=== PATIENT | female | born 1985 | race Hispanic/Latino ===

== ENCOUNTER 2023-05-29 13:00 | Emergency (ER) | payer BC ==
[~2023-05-29] VITALS: Ht 154.9 cm; Wt 56.7 kg
[2023-05-29 14:16] VITALS: BP 112/56; PULSE 65; RESP 1; RESP 18; TEMP 98.4; O2SAT 100
[2023-05-29] MEDS ORDERED: TORADOL IM STA (14:26)
[2023-05-29 14:30] VITALS: BP 112/56; PULSE 65; RESP 18; TEMP 98.4; O2SAT 100
[2023-05-29] MEDS ORDERED: TORADOL ONE (14:39)
[2023-05-29 15:25] VITALS: BP 104/60; PULSE 68; RESP 18; TEMP 98.4; O2SAT 100
[2023-05-29 16:16] VITALS: BP 108/64; PULSE 64; RESP 18; TEMP 98.4; O2SAT 100
== END 2023-05-29 16:16 | disposition home or self-care (01) ==
LOC: ER 13:00
DX: S59.902A Unspecified injury of left elbow, initial encounter (principal); Z90.49 Acquired absence of other specified parts of digestive tract; Z90.710 Acquired absence of both cervix and uterus; X58.XXXA Exposure to other specified factors, initial encounter; Y93.89 Activity, other specified; Y92.89 Other specified places as the place of occurrence of the external cause; Y99.8 Other external cause status
CPT/HCPCS: 99284; 96372; 73070; J1885